=== PATIENT | female | born 1945 | race African-American/Black ===

== ENCOUNTER 2018-01-19 09:57 | Outpatient (CLI) | payer MEDICARE, OTHER | END 2018-01-19 09:58 | disposition home or self-care (01) | LOC: BICMAMMO 09:57 | PROVIDERS: ATTEND Family Medicine | DX: N63.20 Unspecified lump in the left breast, unspecified quadrant (principal); R92.1 Mammographic calcification found on diagnostic imaging of breast; Z80.3 Family history of malignant neoplasm of breast | CPT/HCPCS: 76642; 77066; G0279 ==

== ENCOUNTER → 2018-01-27 | Day surgery (SDC) | payer MEDICARE, OTHER | LOC: BICULT 12:36 | PROVIDERS: ATTEND Family Medicine | PROC: 0HBU3ZX Excision of Left Breast, Percutaneous Approach, Diagnostic (ICD-10-PCS; principal; 2018-01-27) | DX: C50.212 Malignant neoplasm of upper-inner quadrant of left female breast (principal) | CPT/HCPCS: 19083; 88305; 88341; 88342 ==

== ENCOUNTER 2018-02-27 14:25 | Outpatient (CLI) | payer MEDICARE, OTHER ==
[2018-02-27 16:15] LABS: Anion Gap 16 mmol/L (10-20); BUN (Urea Nitrogen) 27 mg/dL (9.8-20.1); Calc. Creatinine Clearance 0 mL/min (70-130); Calcium 9.8 mg/dL (7.8-10.44); Carbon Dioxide 16 mmol/L (23-31); Chloride 113 mmol/L (98-107); Estimated GFR-MDRD 31; Glucose 79 mg/dL (83-110); Potassium 4.3 mmol/L (3.5-5.1); Sodium 141 mmol/L (136-145)
[2018-02-27 16:28] LABS: Eosinophils 3 % (0-10); Hemoglobin 12.1 g/dL (12.0-16.0); Lymphocytes 29 % (21-51); MDiff Complete? YES; Mean Corpuscular HGB CONC 33.2 g/dL (32.0-36.0); Mean Corpuscular Hemoglobin 34.2 pg (27.0-31.0); Mean Platelet Volume 7.9 fL (7.4-10.4); Monocytes 5 % (0-10); Neutrophil 62 % (42-75); PLT Morphology Comment Appears Adequate; Platelet Count 164 thou/uL (130-400); RBC Distribution Width 13.4 % (11.5-14.5); Red Blood Cell (RBC) Count 3.54 mill/uL (4.20-5.40)
== END 2018-02-27 14:26 | disposition home or self-care (01) ==
LOC: LABBT 14:25
PROVIDERS: ATTEND Surgery
DX: Z01.812 Encounter for preprocedural laboratory examination (principal); C50.912 Malignant neoplasm of unspecified site of left female breast
CPT/HCPCS: 80048; 85025; 93005; 93010

== ENCOUNTER 2018-03-10 07:26 | Day surgery (SDC) | payer MEDICARE, OTHER ==
[2018-02-27 14:43] VITALS: BMI 33.7
[2018-03-10] MEDS ORDERED: CEFAZOLIN/Water 2 GM/20 ML SYRINGE ONE (09:01)
--- NOTE | 2018-03-10 09:18 | NM ---
LEFT BREAST LYMPHOSCINTIGRAPHY: Date: 03/10/18 HISTORY: Malignant neoplasm of unspecified site of the left female breast. TECHNIQUE: Planar images of the head, neck, and chest were obtained following the left periareolar injection of 440 microcuries technetium-99m filtered sulfur colloid in divided doses. During one of the injections , there was a tiny drop of radiopharmaceutical that fell on the patient's skin in the mid chest. FINDINGS: There is tracer uptake in the left axillary lymph nodes. The drop of contamination of radiopharmaceutical on the chest wall is visualized on the images. IMPRESSION: [place] lymph node(s) in left axilla. POS: [facility]
[2018-03-10] MEDS ORDERED: Bupivacaine/Epinephrine 0.25% 30 ML VIAL ONE ×2 (10:47→13:39)
[2018-03-10] MEDS ORDERED: Isosulfan Blue 50 MG/5 ML VIAL ONE (10:47)
[2018-03-10] MEDS ORDERED: Fentanyl 100 MCG/2 ML VIAL ONE (10:51)
--- NOTE | 2018-03-10 14:50 | MMO ---
MAMMOGRAPHIC SURGICAL SPECIMEN: Date: 03/10/18 HISTORY: Breast mass. COMPARISON: Outside facility ultrasound and mammogram. FINDINGS: Two specimens were obtained. The second specimen contained a mass and clip. IMPRESSION: Second specimen contains mass and clip. Findings discussed with Dr. Gonzalez at time of exam. POS: [facility]
[2018-03-10] MEDS ORDERED: PROPOFOL 200 MG/20 ML VIAL ONE (15:04)
[2018-03-10] MEDS ORDERED: Ondansetron HCl/PF 4 MG/2 ML Vial ONE (15:04)
[2018-03-10] MEDS ORDERED: Lidocaine 1% PF 5 ML VIAL ONE (15:04)
[2018-03-10] MEDS ORDERED: Dexamethasone 20 MG/5 ML VIAL ONE (15:04)
--- NOTE | 2018-03-15 19:32 | PDOC.OP ---
Operative Note - Operative Note Operative Note: PROCEDURE: Left breast lumpectomy with sentinel lymph node biopsy DATE OF PROCEDURE: 03/10/2018 SURGEON: Lauren Gonzalez M.D. PREOPERATIVE DIAGNOSES: Left breast cancer POSTOPERATIVE DIAGNOSIS: Left breast cancer HISTORY: Patient with newly diagnosed left breast cancer. She is clinically node negative and has decided to proceed with breast conservation therapy. PROCEDURE IN DETAIL: After informed consent was obtained, the patient was taken to the operating room she was placed in the supine position and general anesthesia was administered. Lymphazurin was injected behind the nipple and the breast was massaged. She was prepped and draped in a standard sterile fashion with appropriate padding and support of her left arm. Lymphoscintigraphy had been previously performed in nuclear medicine and 2 axillary lymph nodes seen on postinjection imaging. Local anesthesia was infused to the skin subcutaneous tissues over the lower hairbearing area of the axilla and a transverse skin incision was made dissection was carried down to the true axilla and a neoprobe device used to identify a lymph node with markedly increased activity. This was dissected free using clips and was noted to be blue in color. Specimen count was 604. This lymph node was sent as sentinel lymph node #1. The axilla was again examined and palpated. No palpable nodes were found but an area of increased activity was identified and a second slightly blue lymph node was found and dissected free using clips. Specimen count was 180 and this lymph node was sent as sentinel lymph node #2. On reexamination of the axilla one other area of slightly increased activity was identified and a third small lymph node excised. Specimen count was 97 and this was sent as sentinel lymph node #3. No additional areas of increased activity were identified and the axilla was irrigated and examined for hemostasis which was excellent. Additional local anesthesia was infused for postoperative pain control and the subcutaneous tissues were reapproximated with 3-0 Monocryl. The skin was closed with 4-0 subcuticular Monocryl suture and Dermabond dressings placed. Attention was then turned to the left breast mass. This was identified by palpation and ultrasound and local anesthesia infused circumferentially. Dissection was carried down to the palpable mass which was dissected free circumferentially and marked for orientation with a long lateral, short superior, and loop superficial suture. This was sent for specimen x-ray but the biopsy clip was not seen. The breast was reexamined and the mass was confirmed to still be present in the breast just superior to the previous mass. This was dissected free circumferentially and marked with a long lateral, short superior, and looped superficial suture. It was sent for specimen x-ray and the clip was confirmed to be within the specimen. The wound was irrigated and hemostasis obtained using Bovie electrocautery. Additional local anesthesia was infused for postoperative pain management and the subcutaneous tissues were closed with 3-0 Monocryl sutures. Additional local anesthesia was infused into the cavity and the skin was closed with 4-0 Monocryl suture. Dermabond dressings were placed and the patient was taken to the recovery room in good condition. Estimated blood loss was minimal. There were no complications. SPECIMENS: [place] lymph nodes 3, left breast mass and extended superior margin containing mass and clip.
== END 2018-03-10 15:50 | disposition home or self-care (01) ==
LOC: SDC 07:26
PROVIDERS: ATTEND Surgery
PROC: 0HBU0ZZ Excision of Left Breast, Open Approach (ICD-10-PCS; principal; 2018-03-10)
PROC: 07B60ZX Excision of Left Axillary Lymphatic, Open Approach, Diagnostic (ICD-10-PCS; 2018-03-10)
DX: C50.412 Malignant neoplasm of upper-outer quadrant of left female breast (principal); C77.3 Secondary and unspecified malignant neoplasm of axilla and upper limb lymph nodes; M19.90 Unspecified osteoarthritis, unspecified site; E78.00 Pure hypercholesterolemia, unspecified; M10.9 Gout, unspecified; I10 Essential (primary) hypertension; M81.0 Age-related osteoporosis without current pathological fracture; Z79.82 Long term (current) use of aspirin; Z79.899 Other long term (current) drug therapy; Z88.8 Allergy status to other drugs, medicaments and biological substances
CPT/HCPCS: 19301; 38525; 76098; 78195; 88307; 88342; A9541; Q9968; J0131; J1100; J2001; J2405; J2704; J3010

== ENCOUNTER 2018-05-26 13:33 | Outpatient (CLI) | payer MEDICARE, OTHER ==
--- NOTE | 2018-05-26 16:36 | BD ---
Exam: DEXA Bone Density 05/26/18 HISTORY: Postmenopausal screening for osteoporosis. Asymptomatic menopausal state. FINDINGS: Lumbar Spine: BMD (g/cm2) T-Score: Z-Score: L1 1.068 0.7 2.8 L2 1.108 0.7 3.1 L3 1.067 -0.2 2.3 L4 0.996 -0.6 1.9 L1-L4 1.053 0.1 2.4 Femoral Neck: 0.661 -1.7 0.4 Total Femur: 0.867 -0.6 1.1 Ten year fracture risk for major osteoporotic fracture is 14% and for hip fracture is 3%. Impression: Osteopenia. POS: [facility]
== END 2018-05-26 13:34 | disposition home or self-care (01) ==
LOC: BICMAMMO 13:33
PROVIDERS: ATTEND Internal Medicine Hematology & Oncology
DX: C50.912 Malignant neoplasm of unspecified site of left female breast (principal); Z78.0 Asymptomatic menopausal state
CPT/HCPCS: 77080

== ENCOUNTER 2019-01-30 13:45 | Outpatient (CLI) | payer MEDICARE, OTHER ==
--- NOTE | 2019-01-31 15:27 | MMO ---
Bilateral MAMMO Bilat Diag [facility]. CLINICAL HISTORY: Patient is 73 years old and is seen for diagnostic exam. The patient has the following family history of breast cancer: mother. The patient has a history of malignant (generic) in the left breast. The patient has a history of left Lumpectomy in February, - malignant. VIEWS: The views performed were: bilateral craniocaudal with tomosynthesis; bilateral mediolateral oblique with tomosynthesis; and bilateral mediolateral with tomosynthesis. FILMS COMPARED: The present examination has been compared to prior imaging studies performed at [facility] on 01/13/2009, 03/19/2010, 03/22/2011 and 01/19/2018. MAMMOGRAM FINDINGS: There are scattered fibroglandular densities. Finding 1: There are stable benign appearing calcifications seen in both breasts. Finding 2: There are new post operative changes seen in the left breast. There are no suspicious masses, suspicious calcifications, or concerning areas of architectural distortion. IMPRESSION: THERE IS NO MAMMOGRAPHIC EVIDENCE OF MALIGNANCY. A ROUTINE FOLLOW-UP MAMMOGRAM IN 1 YEAR IS RECOMMENDED. 3BTHE RESULTS OF THIS EXAM WERE SENT TO THE PATIENT.0B ACR BI-RADS Category 2 - Benign finding MAMMOGRAPHY NOTE: 1. A negative mammogram report should not delay a biopsy if a dominant of clinically suspicious mass is present. 2. Approximately 10% to 15% of breast cancers are not detected by mammography. 3. Adenosis and dense breasts may obscure an underlying neoplasm. Reported by: JANUARY MCFARLANE MD Electonically Signed: [id number]
== END 2019-01-30 13:46 | disposition home or self-care (01) ==
LOC: BICMAMMO 13:45
PROVIDERS: ATTEND Surgery
DX: Z85.3 Personal history of malignant neoplasm of breast (principal); Z80.3 Family history of malignant neoplasm of breast; Z98.890 Other specified postprocedural states
CPT/HCPCS: 77066; G0279

== ENCOUNTER 2019-05-28 13:53 | Outpatient (CLI) | payer MEDICARE, OTHER ==
--- NOTE | 2019-05-28 14:50 | BD ---
DEXA SCAN: 05/28/2019 PROVIDED CLINICAL HISTORY: Postmenopausal screening. FINDINGS: LUMBAR SPINE BMD (g/cm2) T-SCORE L1 1.029 0.4 L2 1.015 -0.1 L3 1.066 -0.2 L4 0.969 -0.8 TOTAL 1.018 -0.3 FEMORAL NECK 0.636 -1.9 TOTAL 0.889 -0.4 The ten year fracture risk for a major osteoporotic fracture is 15% and for a hip fracture is 4.2%. IMPRESSION: Calculated bone mineral density meets WHO criteria for osteopenia involving the left femoral neck and places the patient at increased risk for fracture. POS: [facility]
== END 2019-05-28 13:54 | disposition home or self-care (01) ==
LOC: BICMAMMO 13:53
PROVIDERS: ATTEND Internal Medicine Hematology & Oncology
DX: M85.852 Other specified disorders of bone density and structure, left thigh (principal); T38.6X5A Adverse effect of antigonadotrophins, antiestrogens, antiandrogens, not elsewhere classified, initial encounter; C50.919 Malignant neoplasm of unspecified site of unspecified female breast
CPT/HCPCS: 77080

== ENCOUNTER 2020-02-15 10:05 | Outpatient (CLI) | payer MEDICARE, OTHER ==
--- NOTE | 2020-02-15 10:41 | MMO ---
Bilateral MAMMO Bilat Diag [facility]. CLINICAL HISTORY: Patient is 74 years old and is seen for diagnostic exam. The patient has the following family history of breast cancer: mother. The patient has a history of malignant (generic) in the left breast. The patient has a history of left Lumpectomy in February, - malignant. VIEWS: The views performed were: bilateral craniocaudal with tomosynthesis; bilateral mediolateral oblique with tomosynthesis; and bilateral mediolateral with tomosynthesis. FILMS COMPARED: The present examination has been compared to prior imaging studies performed at [facility] on 03/19/2010, 03/22/2011, 01/19/2018 and 01/30/2019. This study has been interpreted with the assistance of computer-aided detection. MAMMOGRAM FINDINGS: There are scattered fibroglandular densities. Finding 1: There are stable post operative changes seen in the left breast. Finding 2: There are stable benign appearing calcifications seen in both breasts. There are no suspicious masses, suspicious calcifications, or new areas of architectural distortion. IMPRESSION: THERE IS NO MAMMOGRAPHIC EVIDENCE OF MALIGNANCY. A ROUTINE FOLLOW-UP MAMMOGRAM IN 1 YEAR IS RECOMMENDED. THE RESULTS OF THIS EXAM WERE SENT TO THE PATIENT. ACR BI-RADS Category 2 - Benign finding MAMMOGRAPHY NOTE: 1. A negative mammogram report should not delay a biopsy if a dominant of clinically suspicious mass is present. 2. Approximately 10% to 15% of breast cancers are not detected by mammography. 3. Adenosis and dense breasts may obscure an underlying neoplasm. Reported by: JANUARY MCFARLANE MD Electonically Signed: [id number]
== END 2020-02-15 10:06 | disposition home or self-care (01) ==
LOC: BICMAMMO 10:05
PROVIDERS: ATTEND Surgery
DX: Z08 Encounter for follow-up examination after completed treatment for malignant neoplasm (principal); Z85.3 Personal history of malignant neoplasm of breast
CPT/HCPCS: 77066; G0279

== ENCOUNTER 2021-03-12 | Outpatient (CLI) | payer MEDICARE, OTHER | END 2021-03-12 10:56 | disposition home or self-care (01) | DX: M85.89 Other specified disorders of bone density and structure, multiple sites (principal) | CPT/HCPCS: 77080 ==

== ENCOUNTER 2021-04-15 15:16 | Outpatient (CLI) | payer MEDICARE, OTHER | END 2021-04-15 15:17 | disposition home or self-care (01) | LOC: BICULT 15:16 | PROVIDERS: ATTEND Surgery | DX: E04.9 Nontoxic goiter, unspecified (principal); E07.89 Other specified disorders of thyroid | CPT/HCPCS: 36415; 76536; 80053; 84550 ==

== ENCOUNTER 2021-05-11 12:43 | Day surgery (SDC) | payer MEDICARE, OTHER ==
[2021-05-08 15:32] VITALS: BMI 33.2
[~2021-05-11 12:43] MED LIST: FLU VACC QS2021-22(65YR UP)/PF 240 MCG/0.7 ML SYRINGE IM ONE
[2021-05-11] MEDS ORDERED: Lidocaine 1% PF 5 ML VIAL ONE (13:15)
[2021-05-11] MEDS ORDERED: Sodium Bicarbonate 2.5 MEQ/5 ML VIAL ONE (13:15)
[2021-05-11 13:43] VITALS: BP 167/75; TEMP 98.1
== END 2021-05-11 13:45 | disposition home or self-care (01) ==
LOC: ULT 12:43
PROVIDERS: ATTEND Student in an Organized Health Care Education/Training Program
PROC: 0G9H3ZX Drainage of Right Thyroid Gland Lobe, Percutaneous Approach, Diagnostic (ICD-10-PCS; principal; 2021-05-11)
DX: E04.1 Nontoxic single thyroid nodule (principal); M19.90 Unspecified osteoarthritis, unspecified site; E78.00 Pure hypercholesterolemia, unspecified; M10.9 Gout, unspecified; I10 Essential (primary) hypertension; M81.0 Age-related osteoporosis without current pathological fracture; Z85.3 Personal history of malignant neoplasm of breast; Z23 Encounter for immunization; Z79.82 Long term (current) use of aspirin; Z79.899 Other long term (current) drug therapy; Z88.8 Allergy status to other drugs, medicaments and biological substances
CPT/HCPCS: 60100; 76942; 90662; G0008; 88173; 88305; 90471

== ENCOUNTER 2022-03-15 09:16 | Outpatient (CLI) | payer MEDICARE, OTHER | END 2022-03-15 09:17 | disposition home or self-care (01) | LOC: BICMAMMO 09:16 | PROVIDERS: ATTEND Internal Medicine Hematology & Oncology | DX: Z08 Encounter for follow-up examination after completed treatment for malignant neoplasm (principal); N18.9 Chronic kidney disease, unspecified; D63.1 Anemia in chronic kidney disease; Z85.3 Personal history of malignant neoplasm of breast; M85.851 Other specified disorders of bone density and structure, right thigh; M85.852 Other specified disorders of bone density and structure, left thigh | CPT/HCPCS: 77066; 77080; G0279 ==

== ENCOUNTER 2023-04-13 09:04 | Outpatient (CLI) | payer MEDICARE, BC | END 2023-04-13 09:05 | disposition home or self-care (01) | LOC: BICMAMMO 09:04 | PROVIDERS: ATTEND Internal Medicine Hematology & Oncology | DX: Z08 Encounter for follow-up examination after completed treatment for malignant neoplasm (principal); Z13.820 Encounter for screening for osteoporosis; N18.9 Chronic kidney disease, unspecified; D63.1 Anemia in chronic kidney disease; M81.0 Age-related osteoporosis without current pathological fracture; Z85.3 Personal history of malignant neoplasm of breast | CPT/HCPCS: 77066; 77080; G0279 ==

== ENCOUNTER 2025-05-31 10:31 | Day surgery (SDC) | payer MEDICARE, BC ==
[2025-05-31] MEDS ORDERED: diphenhydrAMINE 25 MG CAP ONE (12:54)
[2025-05-31] MEDS: diphenhydrAMINE 25 MG CAP PO SCH (12:54)
[2025-05-31] MEDS: Acetaminophen 500 MG TAB PO SCH (12:54)
[2025-05-31] MEDS ORDERED: Acetaminophen 500 MG TAB ONE (12:54)
[2025-05-31 14:40] VITALS: TEMP 98.3
[2025-05-31 16:01] VITALS: BP 135/64
== END 2025-05-31 16:01 | disposition home or self-care (01) ==
LOC: ONC/OP 10:31
PROVIDERS: ATTEND Internal Medicine Hematology & Oncology
DX: D64.9 Anemia, unspecified (principal)
CPT/HCPCS: 36430; 86850; 86900; 86901; 86920; P9016

== ENCOUNTER 2025-06-06 12:25 | Day surgery (SDC) | payer MEDICARE, BC ==
[2025-06-06] MEDS: diphenhydrAMINE 25 MG CAP PO SCH (13:46)
[2025-06-06] MEDS ORDERED: Acetaminophen 500 MG TAB ONE (13:46)
[2025-06-06] MEDS: Acetaminophen 500 MG TAB PO SCH (13:46)
[2025-06-06] MEDS ORDERED: diphenhydrAMINE 25 MG CAP ONE (13:46)
[2025-06-06 16:49] VITALS: BP 149/68; TEMP 98.1
== END 2025-06-06 17:03 | disposition home or self-care (01) ==
LOC: ONC/OP 12:25
PROVIDERS: ATTEND Internal Medicine Hematology & Oncology
DX: D64.9 Anemia, unspecified (principal); D69.59 Other secondary thrombocytopenia
CPT/HCPCS: 36430; 86850; 86900; 86901; 86920; P9016

== ENCOUNTER 2025-06-18 10:11 | Outpatient (CLI) | payer MEDICARE, BC | END 2025-06-18 10:12 | disposition home or self-care (01) | LOC: SCSBT 10:11 | PROVIDERS: ATTEND Internal Medicine Hematology & Oncology | DX: C50.912 Malignant neoplasm of unspecified site of left female breast (principal); M81.8 Other osteoporosis without current pathological fracture; T38.6X5A Adverse effect of antigonadotrophins, antiestrogens, antiandrogens, not elsewhere classified, initial encounter; N18.9 Chronic kidney disease, unspecified; D63.1 Anemia in chronic kidney disease; M85.859 Other specified disorders of bone density and structure, unspecified thigh | CPT/HCPCS: 77066; 77080; G0279 ==